=== PATIENT | male | born 1955 | race Caucasian/White ===

== ENCOUNTER 2020-01-31 06:55 | Day surgery (SDC) | payer BC ==
[2020-01-31] MEDS ORDERED: Propofol 200 MG/20 ML SDV IV ONE (06:56)
[2020-01-31] MEDS ORDERED: Lactated Ringers 1,000 ML IV SCH (07:00)
[2020-01-31] MEDS ORDERED: Sodium Chloride 0.9% 10 ML Syringe FLUSH PRN (07:00)
[2020-01-31] MEDS ORDERED: Midazolam 1 MG/ML 2 ML SDV ONE (07:54)
[2020-01-31] MEDS ORDERED: Propofol 200 MG/20 ML SDV ONE ×2 (07:54→08:36)
--- NOTE | 2020-01-31 09:20 | PCM.PRNOTE ---
- Free Text/Narrative Note: PROCEDURE PERFORMED: Colonoscopy with polypectomy PRE-PROCEDURE DIAGNOSIS/INDICATION FOR PROCEDURE: BRBPR, change in bowel habits (constipation), hx tubular adenoma (2016) CONSENT: Informed consent was obtained prior to the procedure after discussion of the risks (including pain, bleeding, infection, perforation, missed polyps, inability to completely remove polyps or complete procedure necessitating repeat colonoscopy, adverse reaction to anesthesia, cardiovascular event), benefits and alternatives and expected outcomes. The patient expressed understanding and wished to proceed. Verbal consent given and consent form signed. PROCEDURAL PAUSE: Completed SEDATION: Per anesthesia DESCRIPTION OF PROCEDURE: Patient was placed in the left lateral decubitus position. After adequate sedation and anesthetic was administered, a rectal exam was performed revealing healed external hemorrhoid tags. A lubricated Olympus Video Colonoscope was inserted into the rectum and air insufflation was performed. The colonoscope was advanced through the rectum, sigmoid, descending, transverse, and ascending colon with some difficulty due to patient habitus. The cecum was reached and the ileocecal valve as well as the appendiceal orifice were identified and pictorially documented. After adequate visualization of the cecum, the scope was withdrawn, giving 360-degree views of the colonic mucosa and retroflexion was performed in the rectum with the following findings noted: Ileocecal valve: Normal Cecum: Normal Ascending colon: Normal Hepatic flexure: Normal Transverse colon: Normal Splenic flexure: Normal Descending colon: Normal Sigmoid colon: One <5mm sessile polyp removed with cold forceps; complete removal and subsequent hemostasis noted; Moderate small-medium mouth diverticulosis without evidence of inflammation. Rectum: Mild internal hemorrhoids The scope was straightened, air suction performed, and the scope withdrawn without complication. Preparation adequacy Seibert Bowel Prep 10/09. IMPRESSION: Colonoscopy performed revealing one sigmoid polyp, pathology now pending; sigmoid diverticulosis; and internal and external hemorrhoids. PLAN: Will contact the patient when pathology results received with recommendation for repeat colonoscopy. Encourage increased fiber diet and bowel regimen to ensure 1-2 soft bowel movements per day.
[2020-01-31 10:06] VITALS: BP 140/90; PULSE 69
== END 2020-01-31 10:30 | disposition home or self-care (01) ==
LOC: KA.SDS 06:55
PROVIDERS: ATTEND Family Medicine
DX: D12.5 Benign neoplasm of sigmoid colon (principal); K57.30 Diverticulosis of large intestine without perforation or abscess without bleeding; K59.00 Constipation, unspecified; K64.8 Other hemorrhoids; K64.4 Residual hemorrhoidal skin tags; I10 Essential (primary) hypertension; D64.9 Anemia, unspecified; E04.1 Nontoxic single thyroid nodule; M72.2 Plantar fascial fibromatosis; E78.00 Pure hypercholesterolemia, unspecified; E66.9 Obesity, unspecified; Z98.890 Other specified postprocedural states; Z79.899 Other long term (current) drug therapy; Z79.82 Long term (current) use of aspirin; Z88.8 Allergy status to other drugs, medicaments and biological substances; Z68.43 Body mass index [BMI] 50.0-59.9, adult
CPT/HCPCS: 00811; J2250; J2704; J7120